=== PATIENT | female | born 1975 | race Caucasian/White ===

== ENCOUNTER → 2018-03-17 | Outpatient (CLI) | payer BC ==
[~2018-03-17] MED LIST: IBU600 PO; LABE100T28 PO; OXYC-717 PO
--- NOTE | 2018-03-18 10:13 | RADIOLOGY IMAGING REPORT ---
[place] [facility] [place] JAZMINE KN[place] : [id number] MR: [id number] V: [id number] EXAM DATE: ORDERING PHYSICIAN: AIMEE PACK TECHNOLOGIST: Bernadette Mehta PROCEDURE:BILATERAL DIGITAL SCREENING MAMMOGRAM WITH CAD ASSISTED INTERPRETATION & 3D TOMOSYNTHESIS COMPARISON:Prior mammograms 03/15/17, 03/05/16, 02/28/16. INDICATIONS:SCREENING FINDINGS: Moderately heterogeneous fibroglandular tissue is seen throughout the breasts. The parenchymal pattern has remained stable allowing for difference in mammographic technique & patient positioning. There is no evidence of malignant appearing mass, malignant appearing calcifications or other secondary sign of malignancy in either breast. DIAGNOSTIC CATEGORY 1--NEGATIVE. RECOMMENDATIONS: ROUTINE MAMMOGRAM AND CLINICAL EVALUATION. IMPRESSION: BIRADS 1: Negative No significant abnormality is seen. Dictated by: Allison Simmons M.D. on 03/17/2018 at 15:57 Transcribed by: CORINA on 03/17/2018 at 15:59 Approved by: Allison Simmons M.D. on 03/18/2018 at 10:12 [facility]
== END ==
LOC: MAMO 01:47
PROVIDERS: ATTEND Obstetrics & Gynecology
DX: Z12.31 Encounter for screening mammogram for malignant neoplasm of breast (principal)
CPT/HCPCS: 77063; 77067

== ENCOUNTER → 2019-04-09 | Outpatient (CLI) | payer BC ==
--- NOTE | 2019-04-09 16:19 | RADIOLOGY IMAGING REPORT ---
[place] [facility] [place] NAME: JAZMINE KNIGHT : [id number] MR: [id number] V: [id number] EXAM DATE: [id number] ORDERING PHYSICIAN: AIMEE PACK TECHNOLOGIST: Sandy Purcell PROCEDURE: BILATERAL DIGITAL SCREENING MAMMOGRAM WITH CAD ASSISTED INTERPRETATION & 3D TOMOSYNTHESIS REASON FOR STUDY: Screening. COMPARISON: Prior mammograms 03/17/2018 back to 02/28/2016. VIEWS OBTAINED: 2D & 3D full field CC & MLO. BREAST DENSITY: The breasts are heterogeneously dense which may obscure small masses. MAMMOGRAM FINDINGS: The study demonstrates no mass lesions, architectural distortions, or any clustering of suspicious microcalcifications. No interval change when compared to the previous study. IMPRESSION: BIRADS 1: Negative. DIAGNOSTIC CATEGORY 1--NEGATIVE. RECOMMENDATIONS: ROUTINE MAMMOGRAM AND CLINICAL EVALUATION IN 1 YEAR. Dictated by: Dimas Key M.D. on 04/09/2019 at 14:40 Transcribed by: CORINA on 04/09/2019 at 15:02 Approved by: Dimas Key M.D. on 04/09/2019 at 16:19 [facility]
== END ==
LOC: MAMO 01:46
PROVIDERS: ATTEND Obstetrics & Gynecology
DX: Z12.31 Encounter for screening mammogram for malignant neoplasm of breast (principal)
CPT/HCPCS: 77063; 77067